=== PATIENT | female | born 1940 | race Caucasian/White ===

== ENCOUNTER → 2021-04-18 | Outpatient (CLI) | payer OTHER ==
[~2021-04-18] VITALS: Ht 157.5 cm; Wt 65.8 kg
[~2021-04-18] MED LIST: BISOPROLOL FUMA10 MG PO; CENTRUM SILVER1 EACH PO; FISH OIL 1,0001 EAC9 PO; IRBESARTAN300 MG PO; MAG GLYCINATE100 MG PO; METFORMIN HCL500 M3 PO; SIMVASTATIN5 MG PO; VITAMIN B12-FO1 EAC1 PO; VITAMIN D325 MC1 PO; VITAMINC500 PO
--- NOTE | ~2021-04-18 | HPC ---
[facility] [address] [place] [address] PAIN MANAGEMENT CONSULTATION Name: ANSELMO KLEIN Room #: REG FRANCHESKAMichele Leroy#: [id number] Admission: 04/18/21 Attend Phys: Jose Molina DO Discharge: Date of : 40 Report #: [id number] THIS REPORT FOR: cc: Louise Delong Amy M. FNP-C Johnson, James E. DO ~ DOC #: [id number] cc: Dr. Celio Molina DO DATE OF SERVICE: 04/18/2021 REFERRING PHYSICIAN: Dr. Celio Hong. CHIEF COMPLAINT: Low back pain, bilateral lower extremity pain with paresthesias. HISTORY OF PRESENT ILLNESS: As you know, the patient is a very pleasant 80-year-old female who has had a 3-year history of progressively worsening back pain, bilateral lower extremity pain with paresthesias. The patient states her pain intensified without injury or trauma recently, which sent her to her primary care physician for evaluation. The patient was trialled on conservative treatment, but did not see improvement. She was subsequently referred on to Neurosurgery to discuss options for therapy. She was seen by Dr. Celio Hong, neurosurgeon with [facility] and advised to have the findings of her MRI, which shows significant changes at the L4-L5 level. She was advised at the various treatment options and chose a conservative approach initially, though surgical options were entertained. She has been referred to our clinic to discuss the possibility of undergoing an epidural injection under fluoroscopic guidance to address lumbar radicular symptoms secondary to the fragmented disk findings at the L4-L5 level. The patient reports today her pain is continuous, steady and constant with periodic and intermittent exacerbations of symptoms. She states her pain is more of a pulling sensation, sharp, numbness and tingling when describing symptoms. She places current pain score of 5/10, daily average at 10/10, worst pain has been 10/10. The patient states pain is exacerbated with virtually all activities, improves with heat and cold compresses. She has been referred to our service discussed interventional treatment options to address lumbar radiculopathy. PAST MEDICAL HISTORY: 1. Dyslipidemia. 2. Diabetes mellitus type 2. 3. Hypertension. 4. Lumbar spinal stenosis. 5. Asthma. [address] [address] PAIN MANAGEMENT CONSULTATION Name: ANSELMO KLEIN Room #: REG TATA Leroy#: [id number] Admission: 04/18/21 Attend Phys: Jose Molina DO Discharge: Date of : 40 Report #: [id number] PAST SURGICAL HISTORY: 1. Bilateral cataract surgery. 2. Tonsillectomy, adenoidectomy. SOCIAL HISTORY: The patient denies tobacco use. Denies IV or illicit drug use. She is retired, retired years ago. She is accompanied by her and daughter who were present in room today. She is not obtaining workmen's compensation. She is not on disability benefits. She is not in litigation in regards to pain. REVIEW OF SYSTEMS: Positive for wearing corrective eyewear, low back pain with paresthesias, frequent urination, nocturia, incontinence and dribbling to urine, non-insulin dependent diabetes, hypertension, and dyslipidemia. All other review of systems negative per 12-point review of systems other than those listed in the history of present illness. Pain impact score 15/70, mild interference of daily activities secondary to pain. ALLERGIES: CODEINE AND TETRACYCLINE. CURRENT MEDICATIONS: Metformin 500 mg once a day, irbesartan 300 mg once a day, isopropyl 10 mg once a day, simvastatin 5 mg per day, [place]-3 fish oil 1 tablet per day, folic acid 1 tablet per day, cholecalciferol 25 mcg per day, ascorbic acid 500 mg per day, cyanocobalamin once a day, magnesium gluconate 100 mg once a day. IMAGING STUDIES: MRI lumbar spine obtained on 03/09/2021 shows a T2-L1 with anterolateral disk osteophyte complex, mild facet arthropathy. No central canal neural foraminal stenosis L1-L2, intervertebral disk and facets as well as foraminal normal. L2-L3 diffuse annular disk bulge, mild facet arthropathy. No significant central canal neural foraminal stenosis. L3-L4 disk height loss, annular bulge, facet arthropathy, ligamentum flavum hypertrophy, mild bilateral lateral recess and neural foraminal stenosis. L4-L5 anterolisthesis, loss of disk height, left central disk extrusion extending cephalad from the disk with mass effect upon the thecal sac and lateral recess, disk fragment measuring 8 x 4 x 7 mm. Marked facet arthropathy, ligamentum flavum hypertrophy resulting in marked lateral recess stenosis, greater on the left. Marked neural foraminal stenosis, greater on the left. L5-S1, loss of disk height, diffuse disk bulge. Mild facet arthropathy, moderate bilateral neural foraminal stenosis. PQRS: The patient has arthritic changes of the bilateral shoulders, bilateral hips, bilateral knees and lumbar spine. No rheumatoid arthritis, placing current pain score 5/10, not a fall risk, has not had a fall in last 3 months, not on blood thinners, but is treated for hypertension. She is not on chronic opioids, has a low opiate addiction potential. Pain impact is 15/70, mild interference of daily activities secondary to pain. [facility] [address] [place] [address] PAIN MANAGEMENT CONSULTATION Name: ANSELMO KLEIN Room #: REG TATA Mere.#: [id number] Admission: 04/18/21 Attend Phys: Jose Molina DO Discharge: Date of : 40 Report #: [id number] PHYSICAL EXAMINATION: VITAL SIGNS: Blood pressure 169/80, pulse is 63, respiratory rate 16 and unlabored. The patient is 100% on room air. Height 5 feet 2 inches tall, weight 145 pounds, BMI calculated 26.5. GENERAL: Well-developed, well-nourished, well-hydrated 80-year-old female appearing her stated age, pain is rated today at 5/10. HEENT: Normocephalic and atraumatic. Pupils are equal, round and responsive to light. Extraocular muscles are intact. Speech is fluent. The patient deemed a good historian. She is wearing a mask in compliance with COVID-19 regulations. LUNGS: Appear clear. No wheezes, no appreciable rhonchi, no rales. CARDIOVASCULAR: Regular. ABDOMEN: Soft. EXTREMITIES: Show no clubbing, no cyanosis. No appreciable edema. MUSCULOSKELETAL: Lower extremity strength is symmetrical 5/5. Slight giveaway strength noted with hip flexion, knee extension on the left when compared to the right. Muscle bulk and tone appears equal and symmetrical, but deconditioned in the lower extremities. Seated straight leg raising is positive on the left. Supine straight leg raising positive on the left. Shaw's test is negative. Modified Gaenslen's positive for axial low back pain. Ankle clonus negative. Babinski is negative. Gait is antalgic favoring left lower extremity over right. ASSESSMENT: 1. Symptomatic lumbar radiculopathy. 2. Marked lateral recess stenosis of the lumbar spine. 3. Marked neural foraminal stenosis of the lumbar spine. 4. Facet arthropathy, lumbar spine. 5. Lumbar degeneration. 6. Chronic intractable pain. PLAN: 1. Based on today's physical exam and history, the patient has provided the description the patient uses in regards to pain as well as the distribution of symptoms she is experiencing pain upon, the likely source of the patient's pain is the findings at the L4-L5 level causing central canal disruption in and around the lateral recesses causing bilateral lower extremity symptoms, left greater than right. The patient and I discussed the findings of her MRI in their entirety as spending over 18 minutes in time reviewing that MRI and how the symptoms that she is experiencing correlate to those findings. After this discussion, we then conversed about the treatment options we have available to address lumbar radicular symptoms secondary to the findings at the L4-L5 level following was discussed with the patient today. 2. We discussed physical therapy, stretching exercise, core strengthening as a way to treat symptoms. We discussed medication management suggestions with nonsteroidal anti-inflammatories, possible addition of a neuropathic medications [address] [address] PAIN MANAGEMENT CONSULTATION Name: KLEINANSELMO Room #: REG TATA Leroy#: [id number] Admission: 04/18/21 Attend Phys: Jose Molina DO Discharge: Date of : 40 Report #: [id number] such as amitriptyline, nortriptyline, Cymbalta, Lyrica or gabapentin. We discussed a lumbar epidural injection under fluoroscopic guidance for which the patient was referred to our clinic. We also discussed spinal cord stimulator as an option of treatment and ultimately surgical decompression to address the findings at the L4-L5 level. After reviewing risks and benefits of all proposed treatment options, the patient chose to begin with a lumbar epidural injection under fluoroscopic guidance. 3. The patient has been advised risks and benefits of a lumbar epidural injection. These risks include, but are not necessarily limited to; bleeding, bruising, infection, worsening pain, no relief of pain, temporary or permanent muscle weakness, temporary or permanent nerve damage, possible paralysis, post-dural puncture headache and . The patient states understood and wished to proceed. 4. No medication changes made at today's visit. The patient will continue current medical therapy as prior prescribed. 5. We plan to see the patient back in followup visit in 30 days. At that time, review the efficacy of today's epidural injection and determine if next in the series of epidural injections would be recommended. 6. We wish to thank Dr. Celio Hong, for the opportunity to see this patient in consultation. We will keep you apprised of her response to treatment as we address lumbar radicular symptoms secondary to severe lateral recess stenosis and neural foraminal stenosis. Again, we wish to thank you for the opportunity to see the patient in consultation. PROCEDURE NOTE: DESCRIPTION OF PROCEDURE: L5-S1 interlaminar epidural steroid injection under fluoroscopic guidance. This is the first procedure of the first series that the patient is undergoing. After obtaining written consent, the patient was taken back to the fluoroscopy suite, placed in a prone position with pillow under the abdomen to decrease lumbar lordosis. The skin overlying the lumbosacral area was then prepped and draped in aseptic fashion. The L5-S1 vertebral interspace was then identified by AP fluoroscopy. The skin and subcutaneous tissue overlying the target site of injection was anesthetized with 3 mL 1% lidocaine. A(n) 20-gauge 3-1/2 inch Tuohy needle was then advanced under fluoroscopic guidance towards the epidural space using a parasagittal approach. The epidural space was identified using loss of resistance to air technique. After negative aspiration for heme or cerebrospinal fluid, a total of 1 mL of omnipaque was injected. A lumbar epidurogram was confirmed using both AP and lateral fluoroscopy. After negative aspiration for heme or cerebrospinal fluid, 5 mL solution containing 2 mL 40 mg per mL 80 mg total triamcinolone along with 3 mL of lidocaine 1% was injected in increments. Contrast spread was noted posterior [facility] [address] [place] [address] PAIN MANAGEMENT CONSULTATION Name: ANSELMO KLEIN [facility] [id number] Admission: 04/18/21 Attend Phys: Jose Molina DO Discharge: Date of : 40 Report #: [id number] epidural space. The needle was then retracted approximately half way and needle tract flushed with 1 ml of 1% lidocaine. Needle was then removed. there were no apparent sensory or motor deficits in the lower extremity following the procedure. a sterile bandage was placed over the injection site. The heart rate, pulse, oximetry and blood pressure were continuously monitored after the procedure. There were no apparent complications. The patient tolerated the procedure well and was carefully escorted to the recovery room in stable condition. There were no apparent complications. After meeting discharge criteria, the patient was then discharged home. Jose Molina DO JEJ/LEAH By: [id number] Jose Molina DO /nt
[2021-04-18 09:30] VITALS: BP 169/80
--- NOTE | 2021-04-18 09:58 | NUR ---
Pain Clinic Assessment: 1. History of Osteoarthritis: Not Applicable History of Rheumatoid Arthritis: Not Applicable 2. Height: 5 ft. 2 in. 157.5 cm. Weight: 145.0 lb. oz. 65.772 kg. Patient's BMI: 26.5 3. Vital Signs: BP: 169/80 Pulse: 63 Resp: 16 Temp: 02 Sat: 100 ECG Mon: 4. Pain Intensity: 5 5. Fall Risk: Dizziness: N Needs help standing or walking: N Fallen in the last 3 months: N Fall risk comments: 6. Patient on Blood Thinner: None 7. History of Hypertension: Y 8. Opioid Therapy greater than 6 weeks: N Opiate Contract Signed: 9. Risk Assessment Tool Provided: 0 LOW RISK 10. Functional Assessment Tool: 11. Recreational Drug Use: Never Drug Type: Tobacco Use: Never Smoker Tobacco Type: Amount or Packs/day: How Many Years: Alcohol Use: No Frequency: Quant:
== END | disposition home or self-care (01) ==
LOC: PAIN 06:50
PROVIDERS: ATTEND Anesthesiology Pain Medicine
DX: M51.16 Intervertebral disc disorders with radiculopathy, lumbar region (principal); M47.26 Other spondylosis with radiculopathy, lumbar region; M48.061 Spinal stenosis, lumbar region without neurogenic claudication; G89.29 Other chronic pain; I10 Essential (primary) hypertension; E11.9 Type 2 diabetes mellitus without complications; M19.90 Unspecified osteoarthritis, unspecified site; E78.5 Hyperlipidemia, unspecified; J45.909 Unspecified asthma, uncomplicated; Z98.890 Other specified postprocedural states; Z79.899 Other long term (current) drug therapy

== ENCOUNTER → 2021-05-17 | Outpatient (CLI) | payer OTHER ==
[~2021-05-17] VITALS: Ht 157.5 cm; Wt 64.2 kg
[~2021-05-17] MED LIST changes: +NEURONTIN300 MG PO
--- NOTE | ~2021-05-17 | HPC ---
[facility] [place] [address] PAIN MANAGEMENT CONSULTATION Name: ANSELMO KLEIN Room #: REG TATA Mariaa#: [id number] Admission: 05/17/21 Attend Phys: Jose Molina DO Discharge: Date of : 40 Report #: [id number] THIS REPORT FOR: cc: Louise Delong Amy M. FNP-C Johnson, James E. DO ~ cc: Dr. Celio Hong, Dr. Louise Delong DATE OF SERVICE: 05/17/2021 CHIEF COMPLAINT: Low back pain, bilateral lower extremity pain with paresthesias. HISTORY OF PRESENT ILLNESS: As you know, the patient is a very pleasant 81-year-old female with a 3-year history of progressively worsening back pain due to central canal stenosis. She trialled conservative treatment option, but did not notice improvement. She was seen by Dr. Celio Hong, who reviewed the patient's MRI, which showed significant changes at the L4-L5 level. She was sent to trial conservative treatment. She underwent a lumbar epidural injection per the request of Dr. Hong on 04/18/2021 with complete resolution of her back pain. Unfortunately, she continues to experience bilateral lower extremity cramping that occurs at night, consistent with central canal stenosis. She states this wakes her up every evening anywhere between 2 and 4 o'clock in the morning. She returns today in followup visit to discuss treatment options. I discussed treatment options for nocturnal bilateral lower extremity cramping. ALLERGIES: CODEINE AND TETRACYCLINE. CURRENT MEDICATIONS: Metformin, irbesartan, isopropyl, simvastatin, omega-3 fish oil, folic acid, cholecalciferol, cyanocobalamin, magnesium gluconate. SOCIAL HISTORY: The patient denies tobacco use. Denies IV or illicit drug use. She is retired, retired years ago, accompanied by her present in room today. IMAGING: No new imaging is available. PQRS: The patient has known arthritic changes of bilateral shoulders, bilateral hips, bilateral knees and lumbar spine. No rheumatoid arthritis. She is placing pain today at 0/10. She is not a fall risk, has not had a fall in the last 3 months. She is not on blood thinners, but is treated for hypertension. She is on no opioid medications, has a low opiate addiction potential based on assessment tool. Pain impact is 15/70, mild interference of daily activities secondary to pain. PHYSICAL EXAMINATION: VITAL SIGNS: Blood pressure 152/60, pulse 60, respiratory rate 18 and [facility] [address] [place] [address] PAIN MANAGEMENT CONSULTATION Name: ANSELMO KLEIN Room #: REG [facility].#: [id number] Admission: 05/17/21 Attend Phys: Jose Molina DO Discharge: Date of : 40 Report #: [id number] unlabored. The patient 100% on room air. Height 5 feet 2 inches tall, weight 141.6 pounds, BMI calculated 25.9. GENERAL: Well-developed, well-nourished, well-hydrated 81-year-old female appearing stated age, placing pain today at 0/10. HEENT: Normocephalic, atraumatic. Pupils equal, round and responsive. She is wearing a mask in compliance with COVID-19 regulations. EXTREMITIES: Show no clubbing, no cyanosis, no edema. MUSCULOSKELETAL: Lower extremity strength remains symmetrical 5/5. Slight giveaway strength noted again with hip flexion, knee extension on the left when compared to the right, but no pain is generated. Seated straight leg raising negative. Supine straight leg raising is positive on the left. Shaw's test is negative. ASSESSMENT: 1. Symptomatic lumbar radiculopathy. 2. 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 3. Marked neural foraminal stenosis of lumbar spine. 4. Facet arthropathy of lumbar spine. 5. Lumbar degeneration. 6. Chronic intractable pain. 7. Nocturnal bilateral lower extremity cramping. PLAN: 1. The patient has returned today in followup visit where she has reported complete resolution of her back pain with the epidural injection provided at last visit. Unfortunately, the patient continues to experience nocturnal bilateral lower extremity cramping consistent with lumbar spinal stenosis. We discussed with the patient the symptoms that she has been experiencing. She states that anywhere between 2-4 o'clock in the morning, she begins to experience increasing bilateral pain and cramping in the legs and has such severe cramping that she has to arise from bed. This correlates very well with spinal stenosis and lumbar radiculopathy. We discussed that with the patient today. The treatment options we offered were the following: We discussed physical therapy, stretching exercise and core strengthening for which the patient is going to be initiating very soon. We discussed adjustments in medication management, adding a neuropathic medication specifically at night. This could be either amitriptyline, nortriptyline, Cymbalta, Lyrica or gabapentin. We discussed possibly repeating an epidural injection in hopes of improving pain. We ultimately then discussed surgical options. After reviewing risks and benefits of all proposed treatment options, the patient chose to make adjustments in medication management. 2. The patient will be started on gabapentin 300 mg dose starting at night. She will continue the gabapentin for 3 nights. If no improvement in symptoms and no side effects of sleepiness, disorientation, confusion, mental slowing with the medication, then she can increase to 2 tabs p.o. at bedtime for 3 [facility] [address] [place] [address] PAIN MANAGEMENT CONSULTATION Name: ANSELMO KLEIN Room #: REG CLMichele Severino.#: [id number] Admission: 05/17/21 Attend Phys: Jose Molina DO Discharge: Date of : 40 Report #: [id number] nights. If no improvement in symptoms and no side effects, then escalate the dose to 900 mg p.o. at bedtime. This should help with the cramping sensation that the patient is experiencing in the evening hours. I did advise the patient if she notes side effects to medication she is to adjust the timing of the dose of medication if the side effects are only in the morning hours. If she is continuing to experience daily dysphoric effects, then we will have to adjust the medication. She was given a prescription of 90, 300-mg tablets to begin the titration of medication and continue analgesic benefit. Prescription was sent via e-scribe to local pharmacy. 3. We plan to see the patient back in followup visit on an as needed basis. We hope that she continues to see good benefit with the epidural injection we provided at her last visit. We will see her back in followup visit if adjustments in medication management are necessary or to discuss repeating epidural injection. By: [id number] Jose Molina DO /nt
[2021-05-17 08:55] VITALS: BP 152/60
--- NOTE | 2021-05-17 09:18 | NUR ---
Pain Clinic Assessment: 1. History of Osteoarthritis: Not Applicable History of Rheumatoid Arthritis: Not Applicable 2. Height: 5 ft. 2 in. 157.5 cm. Weight: 141.6 lb. oz. 64.229 kg. Patient's BMI: 25.9 3. Vital Signs: BP: 152/60 Pulse: 60 Resp: 18 Temp: 02 Sat: 100 ECG Mon: 4. Pain Intensity: 0 5. Fall Risk: Dizziness: N Needs help standing or walking: N Fallen in the last 3 months: N Fall risk comments: 6. Patient on Blood Thinner: None 7. History of Hypertension: Y 8. Opioid Therapy greater than 6 weeks: N Opiate Contract Signed: 9. Risk Assessment Tool Provided: 0 LOW RISK 10. Functional Assessment Tool: 11. Recreational Drug Use: Never Drug Type: Tobacco Use: Never Smoker Tobacco Type: Amount or Packs/day: How Many Years: Alcohol Use: No Frequency: Quant:
== END ==
LOC: PAIN 06:54
PROVIDERS: ATTEND Anesthesiology Pain Medicine
DX: G89.29 Other chronic pain (principal); M48.061 Spinal stenosis, lumbar region without neurogenic claudication; M47.26 Other spondylosis with radiculopathy, lumbar region; G47.62 Sleep related leg cramps; Z68.25 Body mass index [BMI] 25.0-25.9, adult; Z88.5 Allergy status to narcotic agent; Z88.8 Allergy status to other drugs, medicaments and biological substances; Z79.891 Long term (current) use of opiate analgesic; Z79.899 Other long term (current) drug therapy

== ENCOUNTER → 2021-10-18 | Outpatient (CLI) | payer OTHER, MEDICARE ==
[~2021-10-18] VITALS: Ht 160 cm; Wt 63.5 kg
[2021-10-18 09:53] VITALS: BP 157/73
--- NOTE | 2021-10-18 09:56 | NUR ---
Pain Clinic Assessment: 1. History of Osteoarthritis: Not Applicable History of Rheumatoid Arthritis: Not Applicable 2. Height: 5 ft. 3 in. 160.0 cm. Weight: 140.0 lb. oz. 63.504 kg. Patient's BMI: 24.8 3. Vital Signs: BP: 157/73 Pulse: 63 Resp: 18 Temp: 02 Sat: 99 ECG Mon: 4. Pain Intensity: 6 5. Fall Risk: Dizziness: N Needs help standing or walking: N Fallen in the last 3 months: N Fall risk comments: 6. Patient on Blood Thinner: None 7. History of Hypertension: Y 8. Opioid Therapy greater than 6 weeks: N Opiate Contract Signed: 9. Risk Assessment Tool Provided: 0 LOW RISK 10. Functional Assessment Tool: 11. Recreational Drug Use: Never Drug Type: Tobacco Use: Never Smoker Tobacco Type: Amount or Packs/day: How Many Years: Alcohol Use: No Frequency: Quant:
--- NOTE | 2021-10-24 13:46 | HPC ---
[facility] [place] [address] PAIN MANAGEMENT CONSULTATION Name: ANSELMO KLEIN Room #: REG FRANCHESKAMichele Severino.#: [id number] Admission: 10/18/21 Attend Phys: Jose Molina DO Discharge: Date of : 40 Report #: [id number] THIS REPORT FOR: cc: Louise Delong,Jose Delgado DO ~ cc: Celio Hong MD, Louise Delong, BRIAN DATE OF SERVICE: 10/18/2021 REFERRING PHYSICIAN: Celio Hong MD CHIEF COMPLAINT: Low back pain, bilateral lower extremity pain and paresthesias. HISTORY OF PRESENT ILLNESS: As you know, the patient is a very pleasant 81-year-old female with a 3-year history of progressively worsening back pain, bilateral lower extremity pain and paresthesias. The patient was seen in consultation by Dr. Celio Hong to discuss surgical options. It was agreed upon that the patient would begin with conservative treatment initially. If she did not see improvement in symptoms, then move on with surgical options. She was seen in consultation by myself on 04/18/2021, diagnosed with lumbar radiculopathy. We had the patient undergo a lumbar epidural injection at that visit. She returned on 05/17/2021 reporting a complete resolution of symptoms. She has been lost to follow up visit until today, 10/18/2021, returning in followup visit stating a pain level of 6/10 involving the low back and bilateral lower extremities. She returns today requesting a lumbar epidural injection under fluoroscopic guidance. The patient has had no changes in her medication management since our last visit. She returns today for a lumbar epidural injection under fluoroscopic guidance. ALLERGIES: CODEINE and TETRACYCLINE. CURRENT MEDICATIONS: Metformin 500 mg once a day, irbesartan 300 mg once a day, bisoprolol 10 mg once a day, simvastatin 5 mg per day, omega-3 fish oil one tab per day, folic acid one tab per day, vitamin D3 25 mcg per day, ascorbic acid 500 mg once a day, cyanocobalamin once a day and magnesium gluconate 100 mg once a day. SOCIAL HISTORY: The patient denies tobacco use. Denies IV or illicit drug use. She is retired, retired years ago, unaccompanied today. IMAGING: No new imaging available. PQRS: The patient has known arthritic changes of bilateral shoulders, bilateral hips, bilateral knees and lumbar spine. No rheumatoid arthritis. She is placing pain intensity at 6/10. She is not a fall risk, [place] [address] PAIN MANAGEMENT CONSULTATION Name: ANSELMO KLEIN ANN Room #: REG TATA Leroy#: [id number] Admission: 10/18/21 Attend Phys: Jose Molina DO Discharge: Date of : 40 Report #: [id number] last 3 months. She is not on blood thinners, but is treated for hypertension. She is on no opioids, has a low opioid addiction potential based on assessment tool. Pain impact is 15 of 70, mild interference of daily activities secondary to pain. PHYSICAL EXAMINATION: VITAL SIGNS: Blood pressure 157/73, pulse 63, respiratory rate 18 and unlabored. The patient 99% on room air. Height 5 feet 3 inches tall, weight 140 pounds, BMI calculated 24.8. GENERAL: Well-developed, well-nourished, well-hydrated 81-year-old female appearing stated age, pain is rated today at 6/10. HEENT: Normocephalic, atraumatic. Pupils are round. She is wearing a mask in compliance with COVID-19 regulations. EXTREMITIES: Show no clubbing, no cyanosis, no edema. MUSCULOSKELETAL: Seated straight leg raising is negative. Supine straight leg raising positive on the left. COURTNEY test is negative. Modified Gaenslen's positive for axial low back pain. ASSESSMENT: 1. Symptomatic lumbar radiculopathy. 2. 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 3. Marked neuroforaminal stenosis of lumbar spine. 4. Facet arthropathy of lumbar spine. 5. Lumbar degeneration. 6. Chronic intractable pain. PLAN: 1. The patient returns today in followup visit having noted excellent benefit with lumbar epidural injection under fluoroscopic guidance performed in 03/2021. She has been doing very well until just recently where she has had a slow and progressive return of symptoms, no inciting injury or trauma. She returns today in followup visit requesting to undergo an epidural injection under fluoroscopic guidance to address recurrent lumbar radicular pain. The patient has been advised risks and benefits of the procedure, states understood and wished to proceed. 2. No medication changes made at today's visit. The patient will continue current medical therapy as prior prescribed. 3. We plan to see the patient back in followup visit on an as-needed basis for the next in the series of lumbar epidural injections. We are hopeful once again that the patient will see good and prolonged benefit with the epidural injection provided today. PROCEDURE NOTE DESCRIPTION OF PROCEDURE: L5-S1 interlaminar epidural steroid injection under fluoroscopic guidance. [address] [address] PAIN MANAGEMENT CONSULTATION Name: ANSELMO KLEIN Room #: REG TATA Leroy#: [id number] Admission: 10/18/21 Attend Phys: Jose Molina DO Discharge: Date of : 40 Report #: [id number] This is the second procedure of the first series that the patient is undergoing. After obtaining written consent, the patient was taken back to the fluoroscopy suite, placed in a prone position with pillow under the abdomen to decrease lumbar lordosis. The skin overlying the lumbosacral area was then prepped and draped in aseptic fashion. The L5-S1 vertebral interspace was then identified by AP fluoroscopy. The skin and subcutaneous tissue overlying the target site of injection was anesthetized with 3 mL 1% lidocaine. A 20-gauge 3-1/2-inch Tuohy needle was then advanced under fluoroscopic guidance towards the epidural space using a left paramedian approach. The epidural space was identified using loss of resistance to air technique. After negative aspiration for heme or cerebrospinal fluid, a total of 1 mL of Omnipaque was injected. A lumbar epidurogram was confirmed using both AP and lateral fluoroscopy. After negative aspiration for heme or cerebrospinal fluid, 5 mL of a solution containing 2 mL 40 mg per mL 80 mg total triamcinolone along with 3 mL of lidocaine 1% was injected in increments. Contrast spread was noted in the posterior epidural space. The needle was then retracted approximately half way and needle tract flushed with 1 mL of 1% lidocaine. Needle was then removed. There were no apparent sensory or motor deficits in the lower extremity following the procedure. A sterile bandage was placed over the injection site. The heart rate, pulse, oximetry and blood pressure were continuously monitored after the procedure. There were no complications. The patient tolerated the procedure well and was carefully escorted to the recovery room in stable condition. There were no apparent complications. After meeting discharge criteria, the patient was then discharged home. <ELECTRONICALLY SIGNED> By: Jose Molina DO 10/24/21 [id number] Jose Molina DO /nt
== END | disposition home or self-care (01) ==
LOC: PAIN 07:02
PROVIDERS: ATTEND Anesthesiology Pain Medicine
DX: M51.16 Intervertebral disc disorders with radiculopathy, lumbar region (principal); M48.061 Spinal stenosis, lumbar region without neurogenic claudication; M47.26 Other spondylosis with radiculopathy, lumbar region; G89.29 Other chronic pain; I10 Essential (primary) hypertension; M19.90 Unspecified osteoarthritis, unspecified site; Z98.890 Other specified postprocedural states; Z79.899 Other long term (current) drug therapy; Z88.6 Allergy status to analgesic agent; Z88.8 Allergy status to other drugs, medicaments and biological substances